=== PATIENT | female | born 2000 | race Caucasian/White ===

== ENCOUNTER → 2021-10-14 08:35 | Observation (INO) ==
[~2021-10-14 08:35] MED LIST: 0.9 % Sodium Chloride 1,000 ML IV ONE
== END | disposition home or self-care (01) ==
LOC: 1NENULAB → 1NENUOBS 13:55
PROVIDERS: ADMIT Obstetrics & Gynecology; ATTEND Obstetrics & Gynecology

== ENCOUNTER → 2021-10-27 16:28 | Observation (INO) ==
[2021-10-27 13:14] LABS: Bacteria,Urine Few per hpf (None-Few); Bilirubin,Urine Negative (Negative); Blood,Urine Negative (Negative); Calcium Oxalate Crystals,Urine Present per hpf; Clarity,Urine Turbid (Clear); Color,Urine Yellow (Yellow); Glucose,Urine (UA) Normal (Normal); Ketones,Urine Negative (Negative); Leukocyte Esterase,Urine Large (Negative); Mucus,Urine Many per lpf (None-Few); Nitrite,Urine Positive (Negative); PH,Urine 6.5 pH Units (5.0-8.0); Protein,Urine 50 mg/dL (Neg-Trace); Specific Gravity,Urine 1.027 (1.010-1.025); Squamous Epithelial Cell,Urine Moderate per hpf (None-Few); WBC,Urine TNTC per hpf (0-3)
[2021-10-27 13:56] LABS: Candida DNA Not Detected (Not Detect); Gardnerella DNA DETECTED (Not Detect); Trichomonas DNA Not Detected (Not Detect)
[~2021-10-27 16:28] MED LIST changes: -0.9 % Sodium Chloride 1,000 ML IV ONE; +Azithromycin 250 MG TABLET PO ONE; +CefTRIAXone 1,000 MG VIAL IM ONE; +Lidocaine 1% 20 ML MDV ID ONE
== END | disposition home or self-care (01) ==
LOC: 1NENULAB
PROVIDERS: ADMIT Advanced Practice Midwife; ATTEND Advanced Practice Midwife

== ENCOUNTER → 2021-10-27 23:39 | Observation (INO) ==
[~2021-10-27 23:39] MED LIST changes: -Azithromycin 250 MG TABLET PO ONE; -CefTRIAXone 1,000 MG VIAL IM ONE; -Lidocaine 1% 20 ML MDV ID ONE; +Ondansetron ODT 4 MG TAB.RAPDIS SL ONE
== END | disposition home or self-care (01) ==
LOC: 1NENULAB
PROVIDERS: ADMIT Advanced Practice Midwife; ATTEND Advanced Practice Midwife